=== PATIENT | female | born 1955 | race Caucasian/White ===

== ENCOUNTER 2022-10-03 07:07 | Outpatient (OUT) | payer MEDICARE, BC, SELFPAY ==
[2022-10-03 07:41] LABS: Basophils Percent Auto 0.8 % (0.2-2.0); Eosinophils Absolute Auto 0.3 10^3/uL (0.0-0.7); Eosinophils Percent Auto 5.1 % (0.9-7.0); Hematocrit 37.1 % (36.0-48.0); Hemoglobin 12.6 g/dL (12.0-16.0); Immature Granulocytes Abs Auto 0.02 10^3/uL (0.00-0.03); Immature Granulocytes Pct Auto 0.4 % (0.0-0.5); Lymphocytes Absolute Auto 1.5 10^3/uL (1.2-3.8); Lymphocytes Percent Auto 29.7 % (20.5-60.0); Mean Corpuscular Hemoglobin 30.4 pg (26.7-34.0); Mean Corpuscular Volume 89.4 fL (81.0-99.0); Monocytes Absolute Auto 0.5 10^3/uL (0.3-0.8); Monocytes Percent Auto 10.4 % (1.7-12.0); Neutrophils Absolute Auto 2.7 10^3/uL (1.4-6.5); Neutrophils Percent Auto 53.6 % (43.0-75.0); Platelet Count 185 10^3/uL (150-450); Red Blood Count 4.15 10^6/uL (4.20-5.40); Red Cell Distribution Width 12.8 % (11.0-15.0); White Blood Count 5.1 10^3/uL (4.0-11.0)
[2022-10-03 08:07] LABS: Alanine Aminotransferase 24 U/L (14-59); Albumin Level 3.7 g/dL (3.4-5.0); Alkaline Phosphatase 82 U/L (46-116); Anion Gap 14.2; Aspartate Amino Transferase 13 U/L (15-37); BUN Creatinine Ratio 17.2; Bilirubin Total 0.4 mg/dL (0.2-1.0); Calcium 8.7 mg/dL (8.5-10.1); Carbon Dioxide 23.7 mmol/L (21.0-32.0); Chloride 107 mmol/L (98-107); Cholesterol 183 mg/dL (<=200); Estimated GFR (African America >60 (>=60); Estimated GFR (Non-African Ame >60 (>=60); Globulin 3.6 g/dL; Glucose 130 mg/dL (74-106); HDL Cholesterol 46 mg/dL (40-60); Potassium 3.9 mmol/L (3.5-5.1); Sodium 141 mmol/L (136-145); Total Protein 7.3 g/dL (6.4-8.2); Triglycerides 276 mg/dL (<=150); VLDL CHOLESTEROL 55.2 mg/dL
[2022-10-03 08:35] LABS: Estimated Average Glucose 126 mg/dL
== END 2022-10-03 07:08 | disposition home or self-care (01) ==
LOC: LAB 07:13
PROVIDERS: PCP Family Medicine; Visit Provider Family Medicine
DX: E11.9 Type 2 diabetes mellitus without complications (principal); E78.2 Mixed hyperlipidemia; Z12.11 Encounter for screening for malignant neoplasm of colon; R53.82 Chronic fatigue, unspecified
CPT/HCPCS: 36415; 80053; 80061; 83036; 84439; 84443; 85025

== ENCOUNTER 2023-05-17 19:39 | Emergency (ER) | payer MEDICARE, SELFPAY ==
[2023-05-17 19:45] VITALS: BP 190/92; PULSE 53; RESP 16; TEMP 36.6; O2SAT 99; BMI 31.4
--- NOTE | 2023-05-17 19:54 | XR_ITS ---
The [address] [address] Patient Name: THOMAS ZAMORA MRN: [id number] date: 1955 Sex: F Assigned Patient Location: ER Current Patient Location: ED.MAIN Accession/Order Number: [id number] Exam Date: 05/17/2023 20:08 Report Date: 05/17/2023 20:50 At the request of: CLARITZA GUIDRY Procedure: XR elbow LT min 3V Procedure description: XR elbow LT min 3V HISTORY:Fall COMPARISON: None Findings and Impression: There is no acute fracture or subluxation. 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 Surrounding soft tissues are also unremarkable. Electronically authenticated by: SACHA RAJAN Date: 05/17/2023 20:50
--- NOTE | 2023-05-17 20:35 | ED_ITS ---
HPI - General Adult General Chief complaint: Extremity Injury, Upper Stated complaint: fell, elbow injury Time Seen by Provider: 05/17/23 20:32 Source: patient Mode of arrival: walk-in Limitations: no limitations History of Present Illness HPI narrative: 68-year-old female presents with chief complaint of left elbow injury. Patient states she slipped and fell landing on her elbow earlier today. Injury occurred around 230. She has soft tissue swelling and difficulty with range of motion. Patient states is a reinjury from previous several years ago. She states when she fell previously she did not have a checked out. She states she sitting creasing pain throughout the day with swelling Related Data Home Medications Medication Instructions Recorded Confirmed blood sugar diagnostic (OneTouch 05/17/23 05/17/23 Ultra Test strips) blood-glucose meter (OneTouch 05/17/23 05/17/23 Ultra2 Meter) glimepiride 4 mg tablet mg 05/17/23 lancets 30 gauge (OneTouch Delica 05/17/23 05/17/23 Plus Lancet) lovastatin 20 mg tablet mg 05/17/23 metformin 500 mg tablet mg 05/17/23 venlafaxine 75 mg capsule,extended mg PO 05/17/23 release 24 hr Allergies Allergy/AdvReac Type Severity Reaction Status Date / Time No Known Drug Allergies Allergy Verified 05/17/23 19:50 Review of Systems ROS Narrative All Systems are negative except as noted/marked.All systems reviewed and otherwise negative [facility] Social History Smoking status: Never smoker Exam Narrative Exam Narrative: Nurses note and vital signs reviewed and patient is not hypoxic. General: The patient appears well and in no apparent distress. Patient is resting comfortably on cart. Skin: Warm, dry, no pallor noted. There is no rash noted. Head: Normocephalic, atraumatic Eye: Normal conjunctiva, no drainage, EOMI. PERRL Ears, Nose, Mouth, and Throat: oral mucosa is moist. Nares patent. Mouth without vesicles. Ear canals patent. Tm's without Erythema Musculoskeletal: soft tissue swelling left elbow, extremity neurovascularly intact, difficultywith range of motion.no other injuryies appreciated, no wrist or shoulder pain Neurological: A&O x4, normal speech Psychiatric: Cooperative Constitutional Vital Signs, click to edit/add: Last Vital Signs Temp 97.8 F 05/17/23 19:45 Pulse 53 L 05/17/23 21:22 Resp 16 05/17/23 21:22 BP 168/88 H 05/17/23 21:22 Pulse Ox 100 05/17/23 21:22 O2 Del Method Room Air 05/17/23 21:22 Course Vital Signs Vital signs: Vital Signs Temperature 97.8 F 05/17/23 19:45 Pulse Rate 53 L 05/17/23 19:45 Respiratory Rate 16 05/17/23 19:45 Blood Pressure 190/92 H 05/17/23 19:45 Pulse Oximetry 99 05/17/23 19:45 Oxygen Delivery Method Room Air 05/17/23 19:45 Temperature 97.8 F 05/17/23 19:45 Pulse Rate 53 L 05/17/23 21:22 Respiratory Rate 16 05/17/23 21:22 Blood Pressure 168/88 H 05/17/23 21:22 Pulse Oximetry 100 05/17/23 21:22 Oxygen Delivery Method Room Air 05/17/23 21:22 Medical Decision Making MDM Narrative Medical decision making narrative: Left elbow swelling and pain. She fell and slipped earlier today. X-ray reading is negative. Patient be given Dionte wrap and elbow sling. Follow-up with Dr luo. Medicated here Tylenol 3 discharged home with prescription for Tylenol 3 as well. Patient's questions were answered Differential Diagnosis Differential Diagnosis: , Wrist sprain, elbow fracture Medical Records Medical records reviewed: Yes I reviewed the patient's medical records Imaging Data elbow: Attestation: I have reviewed the pertinent imaging results. Radiologist's impression: radiologist is negative no acute fracture or osteoarthritis is noted Discharge Plan Discharge Chief Complaint: Extremity Injury, Upper Clinical Impression: Elbow sprain Patient Disposition: Home, Self-Care Time of Disposition Decision: 21:01 Condition: Good Mode of Transportation: Private Vehicle Prescriptions / Home Meds: No Action metformin 500 mg tablet venlafaxine 75 mg capsule,extended release 24hr PO (DME) blood-glucose meter [OneTouch Ultra2 Meter] Misc MISCELLANEOUS (DME) OneTouch Ultra Test Strip MISCELLANEOUS glimepiride 4 mg tablet lovastatin 20 mg tablet (DME) lancets [OneTouch Delica Plus Lancet] 30 gauge [facility] [place] MISCELLANEOUS Instructions: Elbow Sprain (ED), P.R.I.C.E. Treatment (ED) Stand Alone Forms: Portal Instructions Referrals: Derick Barone MD [Primary Care Provider] - 1 week Cholo Luo MD [Physician] - 05/20/23 9:30 am Discharge Date/Time: 05/17/23 21:24
[2023-05-17] MEDS: ACETAMINOPHEN 300 MG/ 30 MG CODEINE TABLET 1 TAB PO (20:52)
[2023-05-17 21:22] VITALS: BP 168/88; PULSE 53; RESP 16; O2SAT 100
== END 2023-05-17 21:24 | disposition home or self-care (01) ==
PROVIDERS: Emergency Provider Internal Medicine; PCP Family Medicine
DX: S53.402A Unspecified sprain of left elbow, initial encounter (principal); W01.10XA Fall on same level from slipping, tripping and stumbling with subsequent striking against unspecified object, initial encounter; Z79.899 Other long term (current) drug therapy
CPT/HCPCS: 73080; 99283

== ENCOUNTER 2023-05-28 13:27 | Outpatient (OUT) | payer MEDICARE, SELFPAY ==
--- NOTE | 2023-05-28 13:30 | MM_ITS ---
Patient Name: THOMAS ZAMORA MR#: [id number] : 1955 Exam Date: 05/28/2023 Ordering Doctor: DR Derick Barone . RADIOLOGY REPORT PROCEDURE: MM TOMOSYNTHESIS SCREENING BI COMPARISON: MG MAMM SCREEN KYLEE W CAD, 04/18/2018. MG MAMM SCREEN KYLEE W CAD, 08/05/2019. INDICATIONS: Screening Calculator Name NCI Breast Cancer Risk Assessment Tool 5 Year Breast Cancer Risk 1.50% Lifetime Breast Cancer Risk 5.20% Personal Breast Cancer No Personal Ovarian Cancer No Treatments None Family Cancers None LOCATION: [facility] BREAST COMPOSITION: Scattered areas fibroglandular density. FINDINGS: DIAGNOSTIC CATEGORY 2--BENIGN FINDING. NO CHANGE FROM COMPARISON. Scattered benign-appearing calcifications are present. Scattered benign-appearing lymph nodes are present. RIGHT BREAST: No significant suspicious finding. LEFT BREAST: No significant suspicious finding. RECOMMENDATIONS: ROUTINE MAMMOGRAM AND CLINICAL EVALUATION IN 12 MONTHS. PLEASE NOTE: A NORMAL MAMMOGRAM DOES NOT EXCLUDE THE POSSIBILITY OF BREAST CANCER. A CLINICALLY SUSPICIOUS PALPABLE LUMP SHOULD BE BIOPSIED. Dictated by: Minor Donohue MD on 05/28/2023 at 14:13 Approved by: Minor Donohue MD on 05/28/2023 at 14:15
== END 2023-05-28 13:28 | disposition home or self-care (01) ==
LOC: MAMMO 13:27
PROVIDERS: PCP Family Medicine; Visit Provider Family Medicine
DX: Z12.31 Encounter for screening mammogram for malignant neoplasm of breast (principal)
CPT/HCPCS: 77063; 77067

== ENCOUNTER 2023-05-29 07:48 | Outpatient (OUT) | payer MEDICARE, SELFPAY ==
--- OUTSIDE RECORDS SUMMARY | 2023-05-29 07:50 | XMS_ITS | CCD ---
Author Name Unknown Address [address] [place] [address] [address] [place] [address] Organization [facility] Care Team Providers Care Fingerprint Technician Name Role Phone MEHDIY ., DR CHING Admitting Unavailable HOY ., DR CHING Attending Unavailable HOY ., DR CHING Primary Care Unavailable HOY ., DR CHING Consulting Unavailable HOY ., DR CHING Admitting Unavailable HOY ., DR CHING Attending Unavailable HOY ., DR CHING Primary Care Unavailable HOY ., DR CHING Consulting Unavailable HOY ., DR CHING Admitting Unavailable HOY ., DR CHING Attending Unavailable HOY ., DR CHING Primary Care Unavailable HOY ., DR CHING Consulting Unavailable Problems Active Problems Problem Classification Problem Date Documented Da te Episodic/Chronic Disorders of lipid metabolism (4 sources) Hyperlipidemia, unspecified; Translations: [HYPERLIPIDEMIA UNSPECIFIED] Onset: 09-12-2021 Chronic Residual codes; unclassified (4 sources) Obstructive sleep apnea (adult) (pediatric); Translations: [OBSTRUCTIVE SLEEP APNEA] Onset: 05-29-2022 Chronic Past or Other Problems Problem Classification Problem Date Documented Da te Episodic/Chronic Diabetes mellitus without complication (1 source) Other abnormal glucose; Translations: [OTHER ABNORMAL GLUCOSE] Onset: 09-14-2021 Episodic Other aftercare (1 source) 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 Portillo Davis Basophils/100 WBC (Bld) 0.6 % Normal 0.2-2.[address] [facility] Comment on above: Performed By: #### C BC #### [facility] [address] [address] [address] Portillo Davis EO # 0.2 103/ul Normal 0.0-0.7 [facility] Comment on above: Performed By: #### C BC #### [facility] [address] [place] [address] Dr. Portillo Davis Eosinophils/100 WBC (Bld) 3.4 % Normal 0.9-7.0 [facility] Comment on above: Performed By: #### C BC #### [facility] [address] [place] [address] Dr. Portillo Davis Erythrocyte distribution width (RBC) [Ratio] 12.4 % Normal 11.0-15.[address] [facility] Comment on above: Performed By: #### C BC #### [facility] [address] [place] [address] Dr. Portillo Davis Hematocrit (Bld) [Volume fraction] 39.8 % Normal 36.0-48.[address] [facility] Comment on above: Performed By: #### C BC #### [facility] [address] [place] [address] Dr. Portillo Davis Hemoglobin (Bld) [Mass/Vol] 13.5 g/dL Normal 12.0-16.0 [facility] Comment on above: Performed By: #### C BC #### [facility] [address] [place] [address] Dr. Portillo Davis IG # 0.01 10e3/ul Normal 0.00-0.03 [facility] Comment on above: Performed By: #### C BC #### [facility] [address] [place] [address] Dr. Portillo Davis IG % 0.2 % Normal 0.0-0.5 [facility] Comment on above: Performed By: #### C BC #### [facility] [address] [place] [address] Dr. Portillo Davis LYMPH # 1.5 103/ul Normal 1.2-3.8 [facility] Comment on above: Performed By: #### C BC #### [facility] [address] [place] [address] Dr. Portillo Davis Lymphocytes/100 WBC (Bld) 30.4 % Normal 20.5-60.[address] [facility] Comment on above: Performed By: #### C BC #### [facility] [address] [place] [address] Dr. Portillo Davis MANUAL DIFF REQ NO Normal [facility] Comment on above: Performed By: #### C BC #### [facility] [address] [place] [address] Dr. Portillo Davis MCH (RBC) [Entitic mass] 31.0 pg Normal 26.7-34.[address] [facility] Comment on above: Performed By: #### C BC #### [facility] [address] [place] [address] Dr. Portillo Davis MCHC (RBC) [Mass/Vol] 33.9 g/dL Normal 29.9-35.2 [facility] Comment on above: Performed By: #### C BC #### [facility] [address] [place] [address] Dr. Portillo Davis MCV (RBC) [Entitic vol] 91.5 fL Normal 81.0-99.0 [facility] Comment on above: Performed By: #### C BC #### [facility] [address] [place] [address] Dr. Portillo Davis MONO # 0.5 103/ul Normal 0.3-0.8 [facility] Comment on above: Performed By: #### C BC #### [facility] [address] [place] [address] Dr. Portillo Davis Monocytes/100 WBC (Bld) 9.2 % Normal 1.7-12.0 [facility] Comment on above: Performed By: #### C BC #### [facility] [address] [place] [address] Dr. Portillo Davis NEUT # 2.8 103/ul Normal 1.4-6.[address] [facility] Comment on above: Performed By: #### C BC #### [facility] [address] [place] [address] Dr. Portillo Davis Neutrophils/100 WBC (Bld) 56.2 % Normal 43.0-75.[address] [facility] Comment on above: Performed By: #### C BC #### [facility] [address] [place] [address] Dr. Portillo Davis Platelet mean volume (Bld) [Entitic vol] 10.9 fL Normal 9.5-13.[address] [facility] Comment on above: Performed By: #### C BC #### [facility] [address] [place] [address] Dr. Portillo Davis PLT 203 103/ul Normal 150-[address] [facility] Comment on above: Performed By: #### C BC #### [facility] [address] [place] [address] Dr. Portillo Davis RBC 4.35 106/ul Normal 4.20-5.[address] [facility] Comment on above: Performed By: #### C BC #### [facility] [address] [place] [address] Dr. Portillo Davis WBC 5.0 103/ul Normal 4.0-11.[address] [facility] Comment on above: Performed By: #### C BC #### [facility] [address] [place] [address] Dr. Portillo Davis FREE T3on 09-12-2021 FREE T3 2.49 pg/mlL Normal 2.18-3.[address] [facility] Comment on above: Performed By: #### F T3, LIPID, T4, TSH, CMP #### [facility] [address] [place] [address] Dr. Portillo Davis GLYCOHEMOGLOBIN A1Con 2021 ADA RECOMMENDATION SEE BELOW Normal [facility] [place] [facility] Comment on above: Result Comment: ADA RECOMMENDED LIMIT 4.0 - 6.0 ADA THERAPEUTIC TARGET < 7.0 ACTION SUGGESTED > 7.0 Performed By: #### A 1C #### [facility] [address] [place] [address] Dr. Portillo Davis Glucose [Mass/Vol] 97 mg/dL Normal [facility] Comment on above: Performed By: #### A 1C #### [facility] [address] [place] [address] Dr. Portillo Davis HbA1c (Bld) [Mass fraction] 5.0 % Normal 4.5-6.[address] [facility] Comment on above: Performed By: #### A 1C #### [facility] [address] [place] [address] Dr. Portillo Davis LIPID PROFILEon 09-12-2021 CHOL-HDL RATIO NORM SEE BELOW Normal [facility] Comment on above: Result Comment: 3.3 - 4.4 LOW RISK 4.4 - 7.1 AVERAGE RISK 7.1 - 11.0 MODERATE RISK >11.0 HIGH RISK Performed By: #### F T3, LIPID, T4, TSH, CMP #### [facility] [address] [place] [address] Dr. Portillo Davis Cholesterol [Mass/Vol] 230 mg/dL Critically high <=[address] [facility] Comment on above: Performed By: #### F T3, LIPID, T4, TSH, CMP #### [facility] [address] [place] [address] Dr. Portillo Davis Cholesterol in HDL [Mass/Vol] 50 mg/dL Normal 40-[address] [facility] Comment on above: Performed By: #### F T3, LIPID, T4, TSH, CMP #### [facility] [address] [place] [address] Dr. Portillo Davis Cholesterol in LDL [Mass/Vol] 123.4 mg/dL Normal [facility] Comment on above: Performed By: #### F T3, LIPID, T4, TSH, CMP #### [facility] [address] [place] [address] Dr. Portillo Davis Cholesterol.total/Cho lesterol in HDL [Mass ratio] 4.6 {ratio} Normal [facility] Comment on above: Performed By: #### F T3, LIPID, T4, TSH, CMP #### [facility] [address] [address] [address] Portillo Davis HDL NORMAL > or = 60 mg/dl - LOW CARDIOVASCULAR RISK <40 mg/dl - HIGH CARDIOVASCULAR RISK Normal [facility] Comment on above: Performed By: #### F T3, LIPID, T4, TSH, CMP #### [facility] [address] [address] [address] Portillo Davis LDL CALC NORMAL SEE BELOW Normal [facility] Comment on above: Result Comment: <100 mg/dl OPTIMAL 100 - 129 mg/dl NEAR OR ABOVE OPTIMAL 130 - 159 mg/dl BORDERLINE HIGH 160 - 189 mg/dl HIGH >190 mg/dl VERY HIGH Performed By: #### F T3, LIPID, T4, TSH, CMP #### [facility] [address] [address] [address] Portillo Davis Triglyceride [Mass/Vol] 283 mg/dL Critically high <=[address] [facility] Comment on above: Performed By: #### F T3, LIPID, T4, TSH, CMP #### [facility] [address] [place] [address] Dr. Portillo Davis VLDL CALC 56.6 mg/dL Normal [facility] Comment on above: Performed By: #### F T3, LIPID, T4, TSH, CMP #### [facility] [address] [place] [address] Dr. Portillo Davis PROF 14(COMP METB)on 022 Albumin [Mass/Vol] 3.7 g/dL Normal 3.4-5.0 [facility] Comment on above: Performed By: #### F T3, LIPID, T4, TSH, CMP #### [facility] [address] [address] [address] Portillo Davis Albumin/Globulin [Mass ratio] 1.0 {ratio} Normal [facility] Comment on above: Performed By: #### F T3, LIPID, T4, TSH, CMP #### [facility] [address] [address] [address] Portillo Davis ALP [Catalytic activity/Vol] 65 U/L Normal 46-[address] [facility] Comment on above: Performed By: #### F T3, LIPID, T4, TSH, CMP #### [facility] [address] [place] [address] Dr. Portillo Davis ALT [Catalytic activity/Vol] 21 U/L Normal 14-[address] [facility] Comment on above: Performed By: #### F T3, LIPID, T4, TSH, CMP #### [facility] [address] [place] [address] Dr. Portillo Davis Anion gap [Moles/Vol] 14.0 mmol/L Normal [facility] Comment on above: Performed By: #### F T3, LIPID, T4, TSH, CMP #### [facility] [address] [place] [address] Dr. Portillo Davis AST [Catalytic activity/Vol] 15 U/L Normal 15-[address] [facility] Comment on above: Performed By: #### F T3, LIPID, T4, TSH, CMP #### [facility] [address] [place] [address] Dr. Portillo Davis Bilirubin [Mass/Vol] 0.4 mg/dL Normal 0.2-1.[address] [facility] Comment on above: Performed By: #### F T3, LIPID, T4, TSH, CMP #### [facility] [address] [place] [address] Dr. Portillo Davis Calcium [Mass/Vol] 9.2 mg/dL Normal 8.5-10.1 [facility] Comment on above: Performed By: #### F T3, LIPID, T4, TSH, CMP #### [facility] [address] [place] [address] Dr. Portillo Davis Chloride [Moles/Vol] 107 mmol/L Normal 98-[address] [facility] Comment on above: Performed By: #### F T3, LIPID, T4, TSH, CMP #### [facility] [address] [place] [address] Dr. Portillo Davis CO2 [Moles/Vol] 26.5 mmol/L Normal 21.0-32.0 [facility] Comment on above: Performed By: #### F T3, LIPID, T4, TSH, CMP #### [facility] [address] [address] [address] Portillo Davis Creatinine [Mass/Vol] 0.87 mg/dL Normal 0.55-1.[address] [facility] Comment on above: Performed By: #### F T3, LIPID, T4, TSH, CMP #### [facility] [address] [address] [address] Portillo Dvais EGFR-AF ANGUILLAN >60 Normal >=60 [facility] Comment on above: Performed By: #### F T3, LIPID, T4, TSH, CMP #### [facility] [address] [address] [address] Portillo Davis EGFR-NON AF ANGUILLAN >60 Normal >=[address] [facility] Comment on above: Performed By: #### F T3, LIPID, T4, TSH, CMP #### [facility] [address] [place] [address] Dr. Portillo Davis Globulin (S) [Mass/Vol] 3.7 g/dL Normal [facility] Comment on above: Performed By: #### F T3, LIPID, T4, TSH, CMP #### [facility] [address] [address] [address] Portillo Davis Glucose [Mass/Vol] 117 mg/dL Critically high 74-106 [facility] Comment on above: Performed By: #### F T3, LIPID, T4, TSH, CMP #### [facility] [address] [place] [address] Dr. Portillo Davis Potassium [Moles/Vol] 4.5 mmol/L Normal 3.5-5.[address] [facility] Comment on above: Performed By: #### F T3, LIPID, T4, TSH, CMP #### [facility] [address] [address] [address] Portillo Davis Protein [Mass/Vol] 7.4 g/dL Normal 6.4-8.2 [facility] Comment on above: Performed By: #### F T3, LIPID, T4, TSH, CMP #### [facility] [address] [address] [address] Portillo Davis Sodium [Moles/Vol] 143 mmol/L Normal 136-145 [facility] [place] [facility] Comment on above: Performed By: #### F T3, LIPID, T4, TSH, CMP #### [facility] [address] [place] [address] Dr. Portillo Davis Urea nitrogen [Mass/Vol] 11.0 mg/dL Normal 7.0-18.[address] [facility] Comment on above: Performed By: #### F T3, LIPID, T4, TSH, CMP #### [facility] [address] [place] [address] Dr. Portillo Davis Urea nitrogen/Creatinine [Mass ratio] 12.6 mg/mg Normal [facility] Comment on above: Performed By: #### F T3, LIPID, T4, TSH, CMP #### [facility] [address] [place] [address] Dr. Portillo Davis T4on 09-12-2021 T4 [Mass/Vol] 6.70 ug/dL Normal 4.80-13.90 [facility] Comment on above: Performed By: #### F T3, LIPID, T4, TSH, CMP #### [facility] [address] [place] [address] Dr. Portillo Davis TSHon 09-12-2021 TSH 1.885 uIU/mL Normal 0.358-3.740 [facility] Comment on above: Performed By: #### F T3, LIPID, T4, TSH, CMP #### [facility] [address] [place] [address] Dr. Portillo Davis TSH RANGE SEE BELOW Normal [facility] Comment on above: Result Comment: <0.3 4 UIU/ml HYPERTHYROID 0.34-5.60 UIU/ml EUTHYROID >5.60 UIU/ml HYPOTHYROID Performed By: #### F T3, LIPID, T4, TSH, CMP #### [facility] [address] [place] [address] Dr. Portillo Davis VITAMIN D 25 OHon 09-12-2021 VIT D 25-OH 23.2 ng/mL Normal [facility] Comment on above: Performed By: #### V ITAD #### [facility] [address] [place] [address] Dr. Portillo Davis VIT D RANGES SEE BELOW Normal [facility] Comment on above: Result Comment: <20 ng/mL Vit D deficient 20 - <30 ng/mL Vit D insufficient 30 - 100 ng/mL Vit D sufficient >100 ng/mL Potential Toxicity Performed By: #### V ITAD #### [facility] [address] [address] [address] Portillo Davis Encounters Encounter Date Encounter Type Care Provider Facility Start: 05-29-2022 End: 05-30-[address] JEANE BAUTISTA . Facility: Start: 04-30-2022 End: 05-01-[address] JEANE BAUITSTA . Facility: Start: 09-12-2021 End: 09-13-[address] JEANE BAUTISTA . Facility: Payers Date Payer Category Payer Medicare [id number] 1958 Unknown [id number] 1955 Unknown [id number] [id number] 1955 Unknown [id number] [id number] [id number] 1955 Unknown [id number] [id number] Summary Purpose Family History No Family History Records Found Advance Directives No Advanced Directives Records Found Additional Source Comments INFORMATION SOURCE (unrecogn ized section and content) DATE CREATED AUTHOR 06/05/2022 [facility] FOR RECORDS PERTAINING TO PATIENTS WHO ARE OR HAVE BEEN ENROLLED IN A CHEMICAL DEPENDENCY/SUBSTANCEABUSE PROGRAM, SOME INFORMATION MAY BE OMITTED. This clinical summary was aggregated from multiple sources. Caution should be exercised in using it in the provision of clinical care. This summary normalizes information from multiple sources, and as a consequence, information in this document may materially change the coding, format and clinical context of patient data. In addition, data may be omitted in some cases. CLINICAL DECISIONS SHOULD BE BASED ON THE PRIMARY CLINICAL RECORDS. [employer] [facility]. provides no warranty or guarantee of the accuracy or completeness of information in this document.
[2023-05-29 08:15] LABS: Basophils Percent Auto 0.8 % (0.2-2.0); Eosinophils Absolute Auto 0.2 10^3/uL (0.0-0.7); Eosinophils Percent Auto 3.4 % (0.9-7.0); Hematocrit 36.6 % (36.0-48.0); Hemoglobin 12.2 g/dL (12.0-16.0); Immature Granulocytes Abs Auto 0.02 10^3/uL (0.00-0.03); Immature Granulocytes Pct Auto 0.4 % (0.0-0.5); Lymphocytes Absolute Auto 1.7 10^3/uL (1.2-3.8); Lymphocytes Percent Auto 31.3 % (20.5-60.0); Mean Corpuscular HGB Conc 33.3 g/dL (29.9-35.2); Mean Corpuscular Volume 93.1 fL (81.0-99.0); Mean Platelet Volume 11.4 fL (9.5-13.5); Monocytes Absolute Auto 0.5 10^3/uL (0.3-0.8); Monocytes Percent Auto 10.2 % (1.7-12.0); Neutrophils Absolute Auto 2.9 10^3/uL (1.4-6.5); Neutrophils Percent Auto 53.9 % (43.0-75.0); Platelet Count 195 10^3/uL (150-450); Red Blood Count 3.93 10^6/uL (4.20-5.40); Red Cell Distribution Width 12.3 % (11.0-15.0); White Blood Count 5.3 10^3/uL (4.0-11.0)
[2023-05-29 09:46] LABS: Estimated Average Glucose 120 mg/dL; Glycohemoglobin A1C 5.8 % (4.5-6.2)
[2023-05-29 10:05] LABS: Alanine Aminotransferase 19 U/L (14-59); Albumin Globulin Ratio 0.9; Albumin Level 3.5 g/dL (3.4-5.0); Alkaline Phosphatase 76 U/L (46-116); Anion Gap 12.3; Aspartate Amino Transferase 6 U/L (15-37); Bilirubin Total 0.4 mg/dL (0.2-1.0); Calcium 8.9 mg/dL (8.5-10.1); Carbon Dioxide 28.1 mmol/L (21.0-32.0); Chloride 106 mmol/L (98-107); Chol HDL Ratio 3.8; Cholesterol 177 mg/dL (<=200); Estimated GFR (African America >60 (>=60); Estimated GFR (Non-African Ame >60 (>=60); Free T3 2.58 pg/mL (2.18-3.98); Globulin 3.8 g/dL; Glucose 93 mg/dL (74-106); HDL Cholesterol 47 mg/dL (40-60); Potassium 4.4 mmol/L (3.5-5.1); Sodium 142 mmol/L (136-145); Thyroid Stimulating Hormone 1.793 uIU/mL (0.358-3.740); Total Protein 7.3 g/dL (6.4-8.2); Triglycerides 222 mg/dL (<=150); VLDL CHOLESTEROL 44.4 mg/dL
== END 2023-05-29 07:49 | disposition home or self-care (01) ==
LOC: LAB 07:48
PROVIDERS: PCP Family Medicine; Visit Provider Family Medicine
DX: E78.2 Mixed hyperlipidemia (principal); E11.9 Type 2 diabetes mellitus without complications; G47.30 Sleep apnea, unspecified; R03.0 Elevated blood-pressure reading, without diagnosis of hypertension
CPT/HCPCS: 36415; 80053; 80061; 83036; 83540; 84436; 84443; 84481; 85025

== ENCOUNTER 2024-04-15 14:53 | Outpatient (OUT) | payer MEDICARE, SELFPAY ==
--- NOTE | 2024-04-15 15:00 | US_ITS ---
The [address] [address] Patient Name: THOMAS ZAMORA MRN: [id number] date: 1955 Sex: F Assigned Patient Location: LAB Current Patient Location: LAB Accession/Order Number: [id number] Exam Date: 04/15/2024 15:02 Report Date: 04/15/2024 15:46 At the request of: JEANE BAUTISTA Procedure: US soft tissue head and neck EXAM: US soft tissue head and neck HISTORY: Neck Mass R22.1 COMPARISON: None. TECHNIQUE: Grayscale and color ultrasound FINDINGS: In the region of patient's palpable abnormality there is an asymmetrically enlarged right submandibular gland containing a focal isoechoic partially circumscribed mass measuring 4.1 x 3.5 x 2.7 cm. This lesion demonstrates hypervascularity. The visualized left submandibular gland appears normal US/US soft tissue head and neck IMPRESSION: Focal 4.1 cm vascular mass in the right submandibular gland. This is indeterminate. Consider fine-needle aspiration for histopathologic diagnosis Electronically authenticated by: EMILEE BEAUCHAMP Date: 04/15/2024 15:46
== END 2024-04-15 14:54 | disposition home or self-care (01) ==
LOC: LAB 14:54
PROVIDERS: PCP Family Medicine; Visit Provider Family Medicine
DX: R22.1 Localized swelling, mass and lump, neck (principal)
CPT/HCPCS: 76536

== ENCOUNTER 2024-06-24 08:22 | Outpatient (OUT) | payer MEDICARE, SELFPAY ==
--- OUTSIDE RECORDS SUMMARY | 2024-06-24 08:34 | XMS_ITS | CCD ---
Author Organization [facility] Care Team Providers Care Circuit Design Engineer Name Role Phone LILY ., DR CHING Admitting Unavailable HOY ., [...] Unavailable HOY ., DR CHING Consulting Unavailable VETO PATEL Attending Unavailable AGNES FITZPATRICK Attending Unavailable AGNES FITZPATRICK Attending Unavailable Jeane Bautista MD Primary Care Provider [phone] Medications Current Medications Medication Drug Class(es) Dates Sig (Normalized) Sig (Original) glimepiride 4 mg oral tablet (4 sources) Sulfonylurea take 2 tablets by mouth once daily glimepiride (Amaryl) 4 MG tablet TAKE 2 TABLET BY MOUTH EVERY DAY for 90 days Active lisinopril 20 mg oral tablet (4 sources) Angiotensin Converting Enzyme Inhibitor Start: 06-18-2023 take 1 tablet by mouth once daily lisinopril 20 MG tablet TAKE 1 TABLET BY MOUTH EVERY DAY FOR 30 DAYS 06/18/2023 Active lovastatin 20 mg oral tablet (4 sources) HMG-CoA Reductase Inhibitor Start: 09-04-2023 take 1 tablet by mouth once daily at dinner lovastatin (Mevacor) 20 MG tablet TAKE 1 TABLET BY MOUTH EVERY DAY WITH THE EVENING MEAL FOR 90 DAYS 09/04/2023 Active metFORMIN hydrochloride 500 mg oral tablet (4 sources) Biguanide Start: 06-16-2023 take 1 tablet by mouth in the morning metFORMIN (Glucophage) 500 MG tablet Take 500 mg by mouth in the morning and 500 mg before bedtime. 06/16/2023 Active 24 hr venlafaxine 75 mg extended release oral capsule (4 sources) Serotonin and Norepinephrine Reuptake Inhibitor venlafaxine XR (Effexor XR) 75 MG 24 hr capsule 1 capsule 1 (one) time each day at the same time Active Problems Active Problems Problem Classification Problem Date Documented Date Episodic/Chronic Disorders of lipid metabolism (4 sources) Hyperlipidemia, unspecified; Translations: [HYPERLIPIDEMIA UNSPECIFIED] Onset: 09-12-2021 Chronic Mood disorders (4 sources) Depressive disorder; Translations: [Depression] Onset: 09-11-2023 09-11-2023 Chronic Other ear and sense organ disorders (3 sources) Asymmetrical sensorineural hearing loss; Translations: [Sensorineural hearing loss, bilateral] 12-12-2023 Chronic Residual codes; unclassified (4 sources) Obstructive sleep apnea (adult) (pediatric); Translations: [OBSTRUCTIVE SLEEP APNEA] Onset: 05-29-2022 Chronic Residual codes; unclassified (4 sources) Obstructive sleep apnea syndrome; Translations: [Obstructive sleep apnea (adult) (pediatric)] Onset: 09-11-2023 09-11-2023 Chronic Residual codes; unclassified (4 sources) Daytime somnolence; Translations: [Other hypersomnia] Onset: 09-11-2023 09-11-2023 Chronic Past or Other Problems Problem Classification Problem Date Documented Da te Episodic/Chronic Diabetes mellitus without complication (1 source) Other abnormal glucose; Translations: [OTHER ABNORMAL GLUCOSE] Onset: 09-14-2021 Episodic Other aftercare (1 source) Other ocean transportation intermediary (current) drug therapy; Translations: [OTH CORRECTION CURRENT DRUG THERAPY] Onset: 09-14-2021 Episodic Other lower respiratory disease (4 sources) Hypoxia; Translations: [Hypoxemia] Onset: 09-11-2023 09-11-2023 Episodic Other lower respiratory disease (4 sources) Snoring; Translations: [Snoring] Onset: 09-11-2023 09-11-2023 Episodic Other screening for suspected conditions (not mental disorders or infectious disease) (1 source) Encounter for screening for malignant neoplasm of colon; Translations: [ENC SCREEN MALIG NEOPLASM COLON] Onset: 09-14-2021 Episodic Results Test Name Value Interpretation Reference Range Facil ity CBC AUTO DIFFon 09-12-2021 BASO # 0.0 103/ul Normal 0.0-0.1 [facility] Comment on above: Performed By: #### C BC #### [facility] [address] [place] [address] Dr. Portillo Davis Basophils/100 WBC (Bld) 0.6 % Normal 0.2-2.0 [facility] Comment on above: Performed By: #### C BC #### [facility] [address] [place] [address] Dr. Portillo Davis EO # 0.2 103/ul Normal 0.0-0.7 [facility] Comment on above: Performed By: #### C BC #### [facility] [address] [place] [address] Dr. Portillo Davis Eosinophils/100 WBC (Bld) 3.4 % Normal 0.9-7.0 [facility] Comment on above: Performed By: #### C BC #### [facility] [address] [place] [address] Dr. Portillo Davis Erythrocyte distribution width (RBC) [Ratio] 12.4 % Normal 11.0-15.0 [facility] Comment on above: Performed By: #### C BC #### [facility] [address] [place] [address] Dr. Portillo Davis Hematocrit (Bld) [Volume fraction] 39.8 % Normal 36.0-48.0 [facility] Comment on above: Performed By: #### C BC #### [facility] [address] [place] [address] Dr. Portillo Davis Hemoglobin (Bld) [Mass/Vol] 13.5 g/dL Normal 12.0-16.0 [facility] Comment on above: Performed By: #### C BC #### [facility] [address] [place] [address] Dr. Portillo Davis IG # 0.01 10e3/ul Normal 0.00-0.03 [facility] Comment on above: Performed By: #### C BC #### [facility] [address] [place] [address] Dr. Portillo Davis IG % 0.2 % Normal 0.0-0.5 [facility] Comment on above: Performed By: #### C BC #### [facility] [address] [place] [address] Dr. Portillo Davis LYMPH # 1.5 103/ul Normal 1.2-3.8 [facility] Comment on above: Performed By: #### C BC #### [facility] [address] [place] [address] Dr. Portillo Davis Lymphocytes/100 WBC (Bld) 30.4 % Normal 20.5-60.0 [facility] Comment on above: Performed By: #### C BC #### [facility] [address] [place] [address] Dr. Portillo Davis MANUAL DIFF REQ NO Normal [facility] Comment on above: Performed By: #### C BC #### [facility] [address] [place] [address] Dr. Portillo Davis MCH (RBC) [Entitic mass] 31.0 pg Normal 26.7-34.0 [facility] Comment on above: Performed By: #### C BC #### [facility] [address] [place] [address] Dr. Portillo Davis MCHC (RBC) [Mass/Vol] 33.9 g/dL Normal 29.9-35.2 [facility] Comment on above: Performed By: #### C BC #### [facility] [address] [place] [address] Dr. Portillo Davis MCV (RBC) [Entitic vol] 91.5 fL Normal 81.0-99.0 [facility] Comment on above: Performed By: #### C BC #### [facility] [address] [place] [address] Dr. Portillo Davis MONO # 0.5 103/ul Normal 0.3-0.8 [facility] Comment on above: Performed By: #### C BC #### [facility] [address] [place] [address] Dr. Portillo Davis Monocytes/100 WBC (Bld) 9.2 % Normal 1.7-12.0 [facility] Comment on above: Performed By: #### C BC #### [facility] [address] [place] [address] Dr. Portillo Davis NEUT # 2.8 103/ul Normal 1.4-6.5 [facility] Comment on above: Performed By: #### C BC #### [facility] [address] [place] [address] Dr. Portillo Davis Neutrophils/100 WBC (Bld) 56.2 % Normal 43.0-75.0 [facility] Comment on above: Performed By: #### C BC #### [facility] [address] [place] [address] Dr. Portillo Davis Platelet mean volume (Bld) [Entitic vol] 10.9 fL Normal 9.5-13.5 [facility] Comment on above: Performed By: #### C BC #### [facility] [address] [place] [address] Dr. Portillo Davis PLT 203 103/ul Normal 150-450 [facility] Comment on above: Performed By: #### C BC #### [facility] [address] [place] [address] Dr. Portillo Davis RBC 4.35 106/ul Normal 4.20-5.40 [facility] Comment on above: Performed By: #### C BC #### [facility] [address] [place] [address] Dr. Portillo Davis WBC 5.0 103/ul Normal 4.0-11.0 [facility] Comment on above: Performed By: #### C BC #### [facility] [address] [place] [address] Dr. Portillo Davis FREE T3on 09-12-2021 FREE T3 2.49 pg/mlL Normal 2.18-3.98 [facility] Comment on above: Performed By: #### F T3, LIPID, T4, TSH, CMP #### [facility] [address] [place] [address] Dr. Portillo Davis GLYCOHEMOGLOBIN A1Con 2021 ADA RECOMMENDATION SEE BELOW Normal [facility] Comment on above: Result Comment: ADA RECOMMENDED LIMIT 4.0 - 6.0 ADA THERAPEUTIC TARGET < 7.0 ACTION SUGGESTED > 7.0 Performed By: #### A 1C #### [facility] [address] [address] [address] Portillo Davis Glucose [Mass/Vol] 97 mg/dL Normal [facility] Comment on above: Performed By: #### A 1C #### [facility] [address] [address] [address] Portillo Davis HbA1c (Bld) [Mass fraction] 5.0 % Normal 4.5-6.2 [facility] Comment on above: Performed By: #### A 1C #### [facility] [address] [place] [address] Dr. Portillo Davis LIPID PROFILEon 09-12-2021 CHOL-HDL RATIO NORM SEE BELOW Normal [facility] Comment on above: Result Comment: 3.3 - 4.4 LOW RISK 4.4 - 7.1 AVERAGE RISK 7.1 - 11.0 MODERATE RISK >11.0 HIGH RISK Performed By: #### F T3, LIPID, T4, TSH, CMP #### [facility] [address] [address] [address] Portillo Davis Cholesterol [Mass/Vol] 230 mg/dL Critically high <=200 [facility] Comment on above: Performed By: #### F T3, LIPID, T4, TSH, CMP #### [facility] [address] [place] [address] Dr. Portillo Davis Cholesterol in HDL [Mass/Vol] 50 mg/dL Normal 40-60 [facility] Comment on above: Performed By: #### F T3, LIPID, T4, TSH, CMP #### [facility] [address] [address] [address] Portillo Davis Cholesterol in LDL [Mass/Vol] 123.4 mg/dL Normal [facility] Comment on above: Performed By: #### F T3, LIPID, T4, TSH, CMP #### [facility] [address] [address] [address] Portillo Davis Cholesterol.total/Cho lesterol in HDL [Mass ratio] 4.6 {ratio} Normal [facility] Comment on above: Performed By: #### F T3, LIPID, T4, TSH, CMP #### [facility] [address] [place] [address] Dr. Portillo Davis HDL NORMAL > or = 60 mg/dl - LOW CARDIOVASCULAR RISK <40 mg/dl - HIGH CARDIOVASCULAR RISK Normal [facility] Comment on above: Performed By: #### F T3, LIPID, T4, TSH, CMP #### [facility] [address] [place] [address] Dr. Portillo Davis LDL CALC NORMAL SEE BELOW Normal [facility] Comment on above: Result Comment: <100 mg/dl OPTIMAL 100 - 129 mg/dl NEAR OR ABOVE OPTIMAL 130 - 159 mg/dl BORDERLINE HIGH 160 - 189 mg/dl HIGH >190 mg/dl VERY HIGH Performed By: #### F T3, LIPID, T4, TSH, CMP #### [facility] [address] [place] [address] Dr. Portillo Davis Triglyceride [Mass/Vol] 283 mg/dL Critically high <=150 [facility] Comment on above: Performed By: #### F T3, LIPID, T4, TSH, CMP #### [facility] [address] [place] [address] Dr. Portillo Davis VLDL CALC 56.6 mg/dL Normal [facility] Comment on above: Performed By: #### F T3, LIPID, T4, TSH, CMP #### [facility] [address] [place] [address] Dr. Portillo Davis PROF 14(COMP METB)on 022 Albumin [Mass/Vol] 3.7 g/dL Normal 3.4-5.0 [facility] Comment on above: Performed By: #### F T3, LIPID, T4, TSH, CMP #### [facility] [address] [place] [address] Dr. Portillo Davis Albumin/Globulin [Mass ratio] 1.0 {ratio} Normal [facility] Comment on above: Performed By: #### F T3, LIPID, T4, TSH, CMP #### [facility] [address] [place] [address] Dr. Portillo Davis ALP [Catalytic activity/Vol] 65 U/L Normal 46-116 [facility] Comment on above: Performed By: #### F T3, LIPID, T4, TSH, CMP #### [facility] [address] [place] [address] Dr. Portillo Davis ALT [Catalytic activity/Vol] 21 U/L Normal 14-59 [facility] Comment on above: Performed By: #### F T3, LIPID, T4, TSH, CMP #### [facility] [address] [place] [address] Dr. Portillo Davis Anion gap [Moles/Vol] 14.0 mmol/L Normal [facility] Comment on above: Performed By: #### F T3, LIPID, T4, TSH, CMP #### [facility] [address] [place] [address] Dr. Portillo Davis AST [Catalytic activity/Vol] 15 U/L Normal 15-37 [facility] Comment on above: Performed By: #### F T3, LIPID, T4, TSH, CMP #### [facility] [address] [place] [address] Dr. Portillo Davis Bilirubin [Mass/Vol] 0.4 mg/dL Normal 0.2-1.0 [facility] Comment on above: Performed By: #### F T3, LIPID, T4, TSH, CMP #### [facility] [address] [place] [address] Dr. Portillo Davis Calcium [Mass/Vol] 9.2 mg/dL Normal 8.5-10.1 [facility] Comment on above: Performed By: #### F T3, LIPID, T4, TSH, CMP #### [facility] [address] [place] [address] Dr. Portillo Davis Chloride [Moles/Vol] 107 mmol/L Normal 98-107 [facility] Comment on above: Performed By: #### F T3, LIPID, T4, TSH, CMP #### [facility] [address] [place] [address] Dr. Portillo Davis CO2 [Moles/Vol] 26.5 mmol/L Normal 21.0-32.0 [facility] Comment on above: Performed By: #### F T3, LIPID, T4, TSH, CMP #### [facility] [address] [place] [address] Dr. Portillo Davis Creatinine [Mass/Vol] 0.87 mg/dL Normal 0.55-1.02 [facility] Comment on above: Performed By: #### F T3, LIPID, T4, TSH, CMP #### [facility] [address] [place] [address] Dr. Portillo Davis EGFR-AF ANGUILLAN >60 Normal >=60 [facility] Comment on above: Performed By: #### F T3, LIPID, T4, TSH, CMP #### [facility] [address] [place] [address] Dr. Portillo Davis EGFR-NON AF ANGUILLAN >60 Normal >=60 [facility] Comment on above: Performed By: #### F T3, LIPID, T4, TSH, CMP #### [facility] [address] [place] [address] Dr. Portillo Davis Globulin (S) [Mass/Vol] 3.7 g/dL Normal [facility] Comment on above: Performed By: #### F T3, LIPID, T4, TSH, CMP #### [facility] [address] [place] [address] Dr. Portillo Davis Glucose [Mass/Vol] 117 mg/dL Critically high 74-106 [facility] Comment on above: Performed By: #### F T3, LIPID, T4, TSH, CMP #### [facility] [address] [place] [address] Dr. Portillo Davis Potassium [Moles/Vol] 4.5 mmol/L Normal 3.5-5.1 [facility] Comment on above: Performed By: #### F T3, LIPID, T4, TSH, CMP #### [facility] [address] [place] [address] Dr. Portillo Davis Protein [Mass/Vol] 7.4 g/dL Normal 6.4-8.2 [facility] Comment on above: Performed By: #### F T3, LIPID, T4, TSH, CMP #### [facility] [address] [place] [address] Dr. Portillo Davis Sodium [Moles/Vol] 143 mmol/L Normal 136-145 [facility] Comment on above: Performed By: #### F T3, LIPID, T4, TSH, CMP #### [facility] [address] [place] [address] Dr. Portillo Davis Urea nitrogen [Mass/Vol] 11.0 mg/dL Normal 7.0-18.0 [facility] Comment on above: Performed By: #### F T3, LIPID, T4, TSH, CMP #### [facility] [address] [place] [address] Dr. Portillo Davis Urea nitrogen/Creatinine [Mass ratio] 12.6 mg/mg Normal [facility] Comment on above: Performed By: #### F T3, LIPID, T4, TSH, CMP #### [facility] [address] [place] [address] Dr. Portillo Davis T4on 09-12-2021 T4 [Mass/Vol] 6.70 ug/dL Normal 4.80-13.90 [facility] Comment on above: Performed By: #### F T3, LIPID, T4, TSH, CMP #### [facility] [address] [place] [address] Dr. Portillo Davis TSHon 09-12-2021 TSH 1.885 uIU/mL Normal 0.358-3.740 [facility] Comment on above: Performed By: #### F T3, LIPID, T4, TSH, CMP #### [facility] [address] [place] [address] Dr. Portillo Davis TSH RANGE SEE BELOW Normal [facility] Comment on above: Result Comment: <0.3 4 UIU/ml HYPERTHYROID 0.34-5.60 UIU/ml EUTHYROID >5.60 UIU/ml HYPOTHYROID Performed By: #### F T3, LIPID, T4, TSH, CMP #### [facility] [address] [place] [address] Dr. Portillo Davis VITAMIN D 25 OHon 09-12-2021 VIT D 25-OH 23.2 ng/mL Normal [facility] Comment on above: Performed By: #### V ITAD #### [facility] [address] [address] [address] Portillo Davis VIT D RANGES SEE BELOW Normal [facility] Comment on above: Result Comment: <20 ng/mL Vit D deficient 20 - <30 ng/mL Vit D insufficient 30 - 100 ng/mL Vit D sufficient >100 ng/mL Potential Toxicity Performed By: #### V ITAD #### [facility] [address] [place] [address] [address] Portillo Davis Encounters Encounter Date Encounter Type Care Provider Facility Start: 12-26-2023 End: 12-26-2023 Patient encounter procedure [facility] Comment on above: Asymmetrical sensori neural hearing loss (Primary Dx) Start: 12-12-2023 End: 12-12-2023 Bamboo flowsheet Agnes Fitzpatrick [facility] Work Phone: [facility] Start: 12-12-2023 End: 12-12-2023 Bamboo flowsheet Agnes Fitzpatrick [facility] Work Phone: [facility] Start: 12-12-2023 End: 12-12-2023 ambulatory AGNES FITZPATRICK [facility] Comment on above: Asymmetrical sensori neural hearing loss (Primary Dx) Start: 11-01-2023 End: 11-01-2023 ambulatory AGNES FITZPATRICK Not Available Start: 09-11-2023 End: 09-11-2023 ambulatory VETO PATEL Not Available Start: 05-29-2022 End: 05-30-[address] JEANE BAUTISTA . Facility:[facility] Start: 04-30-2022 End: 05-01-[address] JEANE BAUTISTA . Facility:[facility] Start: 09-12-2021 End: 09-13-[address] JEANE BAUTISTA . Facility: Plan of Treatment Date Care Activity Detail Author Start: 12-26-2023 End: 12-26-2023 Patient encounter procedure 12/26/2023 10:30 AM EDT Office Visit [facility] [address] [place] [id number] [facility] Start: 12-12-2023 End: 12-12-2023 Clinical Support 12/12/2023 11:15 AM EDT Clinical Support [facility] [address] [place] [id number] Agnes Fitzpatrick, [facility] [address] [facility] [place] [address] Arrived [facility] Comment on above: Arrived Start: 12-01-2023 Influenza vaccination Influenza Vacc ine (#1) [facility] Start: 2021 Pneumococcal Vaccine : 65+ Years (1 of 1 - PCV) Pneumococcal Vaccine: 65+ Years (1 of 1 - PCV) [facility] Start: 1996 Screening for malign ant neoplasm of breast Mammogram [facility] Start: 1955 Screening for malign ant neoplasm of colon [facility] Immunizations Immunization Date Immunization Notes Care Provider Fa cility 12-19-2022 influenza virus vacc ine, unspecified formulation Agnes Fitzpatrick [facility] Work Phone: [facility] Payers Date Payer Category Payer Medicare ANTHEM MEDICARE ADVANTAGE ANTHEM MEDICARE ADVANTAGE [id number] 2023-Present [address] [place] [address] [id number] 2023 Medicare [id number] 1958 Medicare [id number] 1959 Unknown [id number] 1956 Unknown [id number] 1956 Unknown [id number] 1956 Unknown [id number] 3 1956 Unknown [id number] 1956 Unknown [id number] 1956 Unknown [id number] Social History Date Type Detail Facility Start: 09-11-2023 Tobacco smoking stat [facility] Ex-smoker [facility] History of tobacco use Current smoker [facility] History of tobacco use Cigarette Smoker [facility] Start: 09-11-2023 Tobacco use and exposure Smoke less tobacco non-user [facility] Start: 09-11-2023 Alcoholic beverage intake Curr ent drinker of alcohol (finding) [facility] Start: 09-11-2023 Alcoholic beverage intake [facility] Start: 09-11-2023 Tobacco use panel [facility] Start: 1955 Sex assigned at Not on file [facility] History of Present illness Narrative 12-26-2023 Rossy Shaw MA - 12/26/2023 10:30 AM EDT Note Date & Type Note Facility 12-26-2023 History of Presen t illness Narrative Patient is very pleased with the heairng aid. She states she hears well and wanted no adjustments. Patient did not have the aid fully inserted into the ear canal upon arrival. We reviewed putting in all the way to improve hearing and minimize any feedback. Patient was comfortable and will continue as needed. documented in this encounter [facility] History of Present illness Narrative 12-12-2023 APURVA Soliman - 12/12/2023 11:15 AM EDT Note Date & Type Note Facility 12-12-2023 History of Presen t illness Narrative Hearing Aid Fitting: Pt fit today with a [employer] [address] Li T coupled to her right ear with a 1S poultry farmworker and 8 tulip dome. Fit is good and pt indicated she was hearing well. Pt is able to insert and remove the aid without difficult. Taught pt how to use the pillowcase turner and the rocker switch. Also taught pt how to change domes and filters. She was advised future supplies cost $10 package for domes or for filters. Downloaded [employer] rock and paired pt's Samsung phone to the rock. Pt is pleased and will return in 2 weeks for check up. HCS paperwork completed. documented in this encounter [facility] Evaluation note Note Date & Type Note Facility Evaluation note Diagnosis Asymmetrical sensorineural hearing loss- Primary Sensorineural hearing loss, asymmetrical documented in this encounter [facility] Evaluation note Note Date & Type Note Facility Evaluation note Diagnosis Asymmetrical sensorineural hearing loss- Primary Sensorineural hearing loss, asymmetrical documented in this encounter [facility] Summary Purpose Family History No Family History Records FoundNo Family History Records Found Advance Directives No Advanced Directives Records FoundNo Advanced Directives Records Found Additional Source Comments INFORMATION SOURCE (unrecogn ized section and content) DATE CREATED AUTHOR 06/05/2022 [facility] DATE CREATED AUTHOR AUTHOR'S ORGANIZ ATION 12/14/2023 [facility] [employer] Care Teams (unrecognized sec tion and content) Circuit Design Engineer Relationship Specialty Start Date End Date Jeane Bautista MD [address] [place] [address] PCP - General Family Medicine 09/03/23 Circuit Design Engineer Relationship Specialty Start Date End Date Jeane Bautista MD [address] [place] [address] PCP - General Family Medicine 09/03/23 Circuit Design Engineer Relationship Specialty Start Date End Date Jeane Bautista MD [address] [place] [address] PCP - General Family Medicine 09/03/23 FOR RECORDS PERTAINING TO PATIENTS WHO ARE [...] BE BASED ON THE PRIMARY CLINICAL RECORDS. [facility]. provides no warranty or guarantee of the accuracy or completeness of information in this document.
[2024-06-24 08:41] LABS: Basophils Percent Auto 0.3 % (0.2-2.0); Eosinophils Absolute Auto 0.1 10^3/uL (0.0-0.7); Eosinophils Percent Auto 1.9 % (0.9-7.0); Hematocrit 36.8 % (36.0-48.0); Hemoglobin 12.8 g/dL (12.0-16.0); Immature Granulocytes Abs Auto 0.01 10^3/uL (0.00-0.03); Immature Granulocytes Pct Auto 0.2 % (0.0-0.5); Lymphocytes Absolute Auto 1.4 10^3/uL (1.2-3.8); Lymphocytes Percent Auto 23.2 % (20.5-60.0); Mean Corpuscular HGB Conc 34.8 g/dL (29.9-35.2); Mean Corpuscular Volume 94.8 fL (81.0-99.0); Mean Platelet Volume 10.9 fL (9.5-13.5); Monocytes Absolute Auto 0.7 10^3/uL (0.3-0.8); Monocytes Percent Auto 11.5 % (1.7-12.0); Neutrophils Absolute Auto 3.7 10^3/uL (1.4-6.5); Neutrophils Percent Auto 62.9 % (43.0-75.0); Platelet Count 200 10^3/uL (150-450); Red Blood Count 3.88 10^6/uL (4.20-5.40); Red Cell Distribution Width 12.9 % (11.0-15.0); White Blood Count 5.9 10^3/uL (4.0-11.0)
[2024-06-24 09:04] LABS: Estimated Average Glucose 111 mg/dL; Glycohemoglobin A1C 5.5 % (4.5-6.2)
[2024-06-24 09:11] LABS: Alanine Aminotransferase 21 U/L (14-59); Albumin Globulin Ratio 1.1; Albumin Level 3.8 g/dL (3.4-5.0); Alkaline Phosphatase 65 U/L (46-116); Anion Gap 9.9; Aspartate Amino Transferase 15 U/L (15-37); Bilirubin Total 0.5 mg/dL (0.2-1.0); Calcium 9.2 mg/dL (8.5-10.1); Carbon Dioxide 27.9 mmol/L (21.0-32.0); Chloride 107 mmol/L (98-107); Chol HDL Ratio 2.9; Cholesterol 186 mg/dL (<=200); Estimated GFR (African America >60 (>=60 mL/min/1.73m^2); Estimated GFR (Non-African Ame 59 (>=60 mL/min/1.73m^2); Free T3 2.13 pg/mL (2.18-3.98); Globulin 3.4 g/dL; Glucose 89 mg/dL (74-106); HDL Cholesterol 65 mg/dL (40-60); Potassium 3.8 mmol/L (3.5-5.1); Sodium 141 mmol/L (136-145); Total Protein 7.2 g/dL (6.4-8.2); Triglycerides 110 mg/dL (<=150)
== END 2024-06-24 08:23 | disposition home or self-care (01) ==
PROVIDERS: PCP Family Medicine; Visit Provider Family Medicine
DX: R53.82 Chronic fatigue, unspecified (principal); E11.9 Type 2 diabetes mellitus without complications; E78.2 Mixed hyperlipidemia; R03.0 Elevated blood-pressure reading, without diagnosis of hypertension
CPT/HCPCS: 36415; 80053; 80061; 83036; 84436; 84443; 84481; 85025

== ENCOUNTER 2024-06-28 10:49 | Outpatient (REF) | payer MEDICARE, SELFPAY ==
--- OUTSIDE RECORDS SUMMARY | 2024-06-29 11:05 | XMS_ITS | CCD ---
Author Organization [facility] Care Team Providers Care Security Officer Supervisor Name Role Phone LILY ., DR CHING [...] Unavailable Jeane Bautista MD Primary Care Provider [phone] Medications Current Medications Medication Drug Class(es) Dates [...] 09-14-2021 Episodic Other aftercare (1 source) Other continuous churn buttermaker (current) drug therapy; Translations: [OTH RETIREMENT CURRENT DRUG THERAPY] Onset: 09-14-2021 Episodic Other [...] 09-12-2021 BASO # 0.0 103/ul Normal 0.0-0.1 [facility] Comment on above: Performed By: #### C BC #### [facility] [address] [place] [address] Dr. Portillo Davis Basophils/100 WBC (Bld) 0.6 % Normal 0.2-2.0 [facility] Comment on above: Performed By: #### C BC #### [facility] [address] [place] [address] Dr. Portillo Davis EO # 0.2 103/ul Normal 0.0-0.7 [facility] Comment on above: Performed By: #### C BC #### [facility] [address] [place] [address] Dr. Portillo Davis Eosinophils/100 WBC (Bld) 3.4 % Normal 0.9-7.0 [facility] Comment on above: Performed By: #### C BC #### [facility] [address] [place] [address] Dr. Portillo Davis Erythrocyte distribution width (RBC) [Ratio] 12.4 % Normal 11.0-15.0 [facility] Comment on above: Performed By: #### C BC #### [facility] [address] [place] [address] Dr. Portillo Davis Hematocrit (Bld) [Volume fraction] 39.8 % Normal 36.0-48.0 [facility] Comment on above: Performed By: #### C BC #### [facility] [address] [place] [address] Dr. Portillo Davis Hemoglobin (Bld) [Mass/Vol] 13.5 g/dL Normal 12.0-16.0 [facility] Comment on above: Performed By: #### C BC #### [facility] [address] [place] [address] Dr. Portillo Davis IG # 0.01 10e3/ul Normal 0.00-0.03 [facility] Comment on above: Performed By: #### C BC #### [facility] [address] [place] [address] Dr. Portillo Davis IG % 0.2 % Normal 0.0-0.5 [facility] Comment on above: Performed By: #### C BC #### [facility] [address] [place] [address] Dr. Portillo Davis LYMPH # 1.5 103/ul Normal 1.2-3.8 [facility] Comment on above: Performed By: #### C BC #### [facility] [address] [place] [address] Dr. Portillo Davis Lymphocytes/100 WBC (Bld) 30.4 % Normal 20.5-60.0 [facility] Comment on above: Performed By: #### C BC #### [facility] [address] [place] [address] Dr. Portillo Davis MANUAL DIFF REQ NO Normal [facility] Comment on above: Performed By: #### C BC #### [facility] [address] [place] [address] Dr. Portillo Davis MCH (RBC) [Entitic mass] 31.0 pg Normal 26.7-34.0 [facility] Comment on above: Performed By: #### C BC #### [facility] [address] [place] [address] Dr. Portillo Davis MCHC (RBC) [Mass/Vol] 33.9 g/dL Normal 29.9-35.2 [facility] Comment on above: Performed By: #### C BC #### [facility] [address] [place] [address] Dr. Portillo Davis MCV (RBC) [Entitic vol] 91.5 fL Normal 81.0-99.0 [facility] Comment on above: Performed By: #### C BC #### [facility] [address] [place] [address] Dr. Portillo Davis MONO # 0.5 103/ul Normal 0.3-0.8 [facility] Comment on above: Performed By: #### C BC #### [facility] [address] [place] [address] Dr. Portillo Davis Monocytes/100 WBC (Bld) 9.2 % Normal 1.7-12.0 [facility] Comment on above: Performed By: #### C BC #### [facility] [address] [place] [address] Dr. Portillo Davis NEUT # 2.8 103/ul Normal 1.4-6.5 [facility] Comment on above: Performed By: #### C BC #### [facility] [address] [place] [address] Dr. Portillo Davis Neutrophils/100 WBC (Bld) 56.2 % Normal 43.0-75.0 [facility] Comment on above: Performed By: #### C BC #### [facility] [address] [place] [address] Dr. Portillo Davis Platelet mean volume (Bld) [Entitic vol] 10.9 fL Normal 9.5-13.5 [facility] Comment on above: Performed By: #### C BC #### [facility] [address] [place] [address] Dr. Portillo Davis PLT 203 103/ul Normal 150-450 [facility] Comment on above: Performed By: #### C BC #### [facility] [address] [place] [address] Dr. Portillo Davis RBC 4.35 106/ul Normal 4.20-5.40 [facility] Comment on above: Performed By: #### C BC #### [facility] [address] [place] [address] Dr. Portillo Davis WBC 5.0 103/ul Normal 4.0-11.0 [facility] Comment on above: Performed By: #### C BC #### [facility] [address] [place] [address] Dr. Portillo Davis FREE T3on 09-12-2021 FREE T3 2.49 pg/mlL Normal 2.18-3.98 [facility] Comment on above: Performed By: #### F T3, LIPID, T4, TSH, CMP #### [facility] [address] [place] [address] Dr. Portillo Davis GLYCOHEMOGLOBIN A1Con 2021 ADA RECOMMENDATION SEE BELOW Normal [facility] Comment on above: Result Comment: ADA RECOMMENDED LIMIT 4.0 - 6.0 ADA THERAPEUTIC TARGET < 7.0 ACTION SUGGESTED > 7.0 Performed By: #### A 1C #### [facility] [address] [address] [address] Portillo Davis Glucose [Mass/Vol] 97 mg/dL Normal [facility] Comment on above: Performed By: #### A 1C #### [facility] [address] [address] [address] Portillo Davis HbA1c (Bld) [Mass fraction] 5.0 % Normal 4.5-6.2 [facility] Comment on above: Performed By: #### A 1C #### [facility] [address] [place] [address] Dr. Portillo Davis LIPID PROFILEon 09-12-2021 CHOL-HDL RATIO NORM SEE BELOW Normal [facility] Comment on above: Result Comment: 3.3 - 4.4 LOW RISK 4.4 - 7.1 AVERAGE RISK 7.1 - 11.0 MODERATE RISK >11.0 HIGH RISK Performed By: #### F T3, LIPID, T4, TSH, CMP #### [facility] [address] [address] [address] Portillo Davis Cholesterol [Mass/Vol] 230 mg/dL Critically high <=200 [facility] Comment on above: Performed By: #### F T3, LIPID, T4, TSH, CMP #### [facility] [address] [place] [address] Dr. Portillo Davis Cholesterol in HDL [Mass/Vol] 50 mg/dL Normal 40-60 [facility] Comment on above: Performed By: #### F T3, LIPID, T4, TSH, CMP #### [facility] [address] [address] [address] Portillo Davis Cholesterol in LDL [Mass/Vol] 123.4 mg/dL Normal [facility] Comment on above: Performed By: #### F T3, LIPID, T4, TSH, CMP #### [facility] [address] [address] [address] Portillo Davis Cholesterol.total/Cho lesterol in HDL [Mass ratio] 4.6 {ratio} Normal [facility] Comment on above: Performed By: #### F T3, LIPID, T4, TSH, CMP #### [facility] [address] [place] [address] Dr. Portillo Davis HDL NORMAL > or = 60 mg/dl - LOW CARDIOVASCULAR RISK <40 mg/dl - HIGH CARDIOVASCULAR RISK Normal [facility] Comment on above: Performed By: #### F T3, LIPID, T4, TSH, CMP #### [facility] [address] [place] [address] Dr. Portillo Davis LDL CALC NORMAL SEE BELOW Normal [facility] Comment on above: Result Comment: <100 mg/dl OPTIMAL 100 - 129 mg/dl NEAR OR ABOVE OPTIMAL 130 - 159 mg/dl BORDERLINE HIGH 160 - 189 mg/dl HIGH >190 mg/dl VERY HIGH Performed By: #### F T3, LIPID, T4, TSH, CMP #### [facility] [address] [place] [address] Dr. Portillo Davis Triglyceride [Mass/Vol] 283 mg/dL Critically high <=150 [facility] Comment on above: Performed By: #### F T3, LIPID, T4, TSH, CMP #### [facility] [address] [place] [address] Dr. Portillo Davis VLDL CALC 56.6 mg/dL Normal [facility] Comment on above: Performed By: #### F T3, LIPID, T4, TSH, CMP #### [facility] [address] [place] [address] Dr. Portillo Davis PROF 14(COMP METB)on 022 Albumin [Mass/Vol] 3.7 g/dL Normal 3.4-5.0 [facility] Comment on above: Performed By: #### F T3, LIPID, T4, TSH, CMP #### [facility] [address] [place] [address] Dr. Portillo Davis Albumin/Globulin [Mass ratio] 1.0 {ratio} Normal [facility] Comment on above: Performed By: #### F T3, LIPID, T4, TSH, CMP #### [facility] [address] [place] [address] Dr. Portillo Davis ALP [Catalytic activity/Vol] 65 U/L Normal 46-116 [facility] Comment on above: Performed By: #### F T3, LIPID, T4, TSH, CMP #### [facility] [address] [place] [address] Dr. Portillo Davis ALT [Catalytic activity/Vol] 21 U/L Normal 14-59 [facility] Comment on above: Performed By: #### F T3, LIPID, T4, TSH, CMP #### [facility] [address] [place] [address] Dr. Portillo Davis Anion gap [Moles/Vol] 14.0 mmol/L Normal [facility] Comment on above: Performed By: #### F T3, LIPID, T4, TSH, CMP #### [facility] [address] [place] [address] Dr. Portillo Davis AST [Catalytic activity/Vol] 15 U/L Normal 15-37 [facility] Comment on above: Performed By: #### F T3, LIPID, T4, TSH, CMP #### [facility] [address] [place] [address] Dr. Portillo Davis Bilirubin [Mass/Vol] 0.4 mg/dL Normal 0.2-1.0 [facility] Comment on above: Performed By: #### F T3, LIPID, T4, TSH, CMP #### [facility] [address] [place] [address] Dr. Portillo Davis Calcium [Mass/Vol] 9.2 mg/dL Normal 8.5-10.1 [facility] Comment on above: Performed By: #### F T3, LIPID, T4, TSH, CMP #### [facility] [address] [place] [address] Dr. Portillo Davis Chloride [Moles/Vol] 107 mmol/L Normal 98-107 [facility] Comment on above: Performed By: #### F T3, LIPID, T4, TSH, CMP #### [facility] [address] [place] [address] Dr. Portillo Davis CO2 [Moles/Vol] 26.5 mmol/L Normal 21.0-32.0 [facility] Comment on above: Performed By: #### F T3, LIPID, T4, TSH, CMP #### [facility] [address] [place] [address] Dr. Portillo Davis Creatinine [Mass/Vol] 0.87 mg/dL Normal 0.55-1.02 [facility] Comment on above: Performed By: #### F T3, LIPID, T4, TSH, CMP #### [facility] [address] [place] [address] Dr. Portillo Davis EGFR-AF [place] >60 Normal >=60 [facility] Comment on above: Performed By: #### F T3, LIPID, T4, TSH, CMP #### [facility] [address] [place] [address] Dr. Portillo Davis EGFR-NON AF [place] >60 Normal >=60 [facility] Comment on above: Performed By: #### F T3, LIPID, T4, TSH, CMP #### [facility] [address] [place] [address] Dr. Portillo Davis Globulin (S) [Mass/Vol] 3.7 g/dL Normal [facility] Comment on above: Performed By: #### F T3, LIPID, T4, TSH, CMP #### [facility] [address] [place] [address] Dr. Portillo Davis Glucose [Mass/Vol] 117 mg/dL Critically high 74-106 [facility] Comment on above: Performed By: #### F T3, LIPID, T4, TSH, CMP #### [facility] [address] [place] [address] Dr. Portillo Davis Potassium [Moles/Vol] 4.5 mmol/L Normal 3.5-5.1 [facility] Comment on above: Performed By: #### F T3, LIPID, T4, TSH, CMP #### [facility] [address] [place] [address] Dr. Portillo Davis Protein [Mass/Vol] 7.4 g/dL Normal 6.4-8.2 [facility] Comment on above: Performed By: #### F T3, LIPID, T4, TSH, CMP #### [facility] [address] [place] [address] Dr. Portillo Davis Sodium [Moles/Vol] 143 mmol/L Normal 136-145 [facility] Comment on above: Performed By: #### F T3, LIPID, T4, TSH, CMP #### [facility] [address] [place] [address] Dr. Portillo Davis Urea nitrogen [Mass/Vol] 11.0 mg/dL Normal 7.0-18.0 [facility] Comment on above: Performed By: #### F T3, LIPID, T4, TSH, CMP #### [facility] [address] [place] [address] Dr. Portillo Davis Urea nitrogen/Creatinine [Mass ratio] 12.6 mg/mg Normal [facility] Comment on above: Performed By: #### F T3, LIPID, T4, TSH, CMP #### [facility] [address] [place] [address] Dr. Portillo Davis T4on 09-12-2021 T4 [Mass/Vol] 6.70 ug/dL Normal 4.80-13.90 [facility] Comment on above: Performed By: #### F T3, LIPID, T4, TSH, CMP #### [facility] [address] [place] [address] Dr. Portillo Davis TSHon 09-12-2021 TSH 1.885 uIU/mL Normal 0.358-3.740 [facility] Comment on above: Performed By: #### F T3, LIPID, T4, TSH, CMP #### [facility] [address] [place] [address] Dr. Portillo Davis TSH RANGE SEE BELOW Normal [facility] Comment on above: Result Comment: <0.3 4 UIU/ml HYPERTHYROID 0.34-5.60 UIU/ml EUTHYROID >5.60 UIU/ml HYPOTHYROID Performed By: #### F T3, LIPID, T4, TSH, CMP #### [facility] [address] [place] [address] Dr. Portillo Davis VITAMIN D 25 OHon 09-12-2021 VIT D 25-OH 23.2 ng/mL Normal [facility] Comment on above: Performed By: #### V ITAD #### [facility] [address] [address] [address] Portillo Davis VIT D RANGES SEE BELOW Normal [facility] Comment on above: Result Comment: <20 ng/mL Vit D deficient 20 - <30 ng/mL Vit D insufficient 30 - 100 ng/mL Vit D sufficient >100 ng/mL Potential Toxicity Performed By: #### V ITAD #### [facility] [address] [place] [address] [id number] [address] Portillo Davis Encounters Encounter Date Encounter Type Care Provider Facility Start: 12-26-2023 End: 12-26-2023 Patient encounter procedure [facility] Comment on above: Asymmetrical sensori neural hearing loss (Primary Dx) Start: 12-12-2023 End: 12-12-2023 Bamboo flowsheet Agnes Fitzpatrick [facility] Work Phone: [facility] Start: 12-12-2023 End: 12-12-2023 Bamboo flowsheet Agnes Fitzpatrick [facility] Work Phone: [facility] Start: 12-12-2023 End: 12-12-2023 ambulatory AGNES FITZPATRICK [facility] Comment on above: Asymmetrical sensori neural [...] EDT Office Visit [facility] [address] [place] [address] [facility] Start: 12-12-2023 End: 12-12-2023 Clinical Support 12/12/2023 11:15 AM EDT Clinical Support [facility] [address] [place] [id number] Agnes Fitzpatrick, [facility] [address] [facility] [place] [address] Arrived [facility] Comment on above: Arrived [...] virus vacc ine, unspecified formulation Agnes Fitzpatrick [facility] Work Phone: [facility] Payers Date Payer Category Payer Medicare ANTHEM MEDICARE ADVANTAGE ANTHEM MEDICARE ADVANTAGE [id number] 2023-Present [address] [place] [address] [id number] 2023 Medicare [id number] 1959 Medicare [id number] 1959 Unknown [id number] 1956 Unknown [id number] 3 1956 Unknown [id number] 3 1956 Unknown [id number] 3 1956 Unknown [id number] 59 1956 Unknown [id number] 59 1956 Unknown [id number] 59 Social History Date Type Detail Facility Start: 09-11-2023 Tobacco smoking stat [facility] Ex-smoker [facility] History of tobacco use [...] Aid Fitting: Pt fit today with a [employer] [address] Li T coupled to her right ear with a 1S registered dietician and 8 tulip dome. Fit is good and pt indicated she was hearing well. Pt is able to insert and remove the aid without difficult. Taught pt how to use the clinical esthetician and the rocker switch. Also taught pt how to change domes and filters. She was advised future supplies cost $10 package for domes or for filters. Downloaded [employer] rock and paired pt's Samsung phone to [...] and content) DATE CREATED AUTHOR 06/05/2022 [facility] DATE CREATED AUTHOR AUTHOR'S ORGANIZ ATION 12/14/2023 [facility] [employer] Care Teams (unrecognized sec tion and content) Security Officer Supervisor Relationship Specialty Start Date End Date Jeane Bautista MD [address] [place] [address] PCP - General Family Medicine 09/03/23 Security Officer Supervisor Relationship Specialty Start Date End Date Jeane Bautista MD [address] [place] [address] PCP - General Family Medicine 09/03/23 Security Officer Supervisor Relationship Specialty Start Date End Date Jeane Bautista MD [address] [place] [address] PCP - General Family Medicine 09/03/23 FOR [...] BE BASED ON THE PRIMARY CLINICAL RECORDS. [facility] [employer] [facility]. provides no warranty or guarantee of the accuracy or completeness of information in this document.
[2024-07-01 08:54] LABS: Internal Control Within Normal Limits; Occult Blood Negative
== END 2024-06-28 10:50 | disposition home or self-care (01) ==
LOC: LAB 10:49
PROVIDERS: PCP Family Medicine; Visit Provider Family Medicine
DX: R53.82 Chronic fatigue, unspecified (principal); E11.9 Type 2 diabetes mellitus without complications; R03.0 Elevated blood-pressure reading, without diagnosis of hypertension
CPT/HCPCS: G0328